=== PATIENT | female | born 1965 | race American Indian/Alaskan Native ===

== ENCOUNTER 2016-11-19 10:34 | Day surgery (SDC) | payer MEDICAID ==
[~2016-11-19 10:34] MED LIST: MARCAINE 0.25% INFILTRATI ONE
[2016-11-19] MEDS ORDERED: ZOFRAN IV PRN (11:05)
--- NOTE | 2016-11-19 11:06 | Anesthesia Day of Surgery ---
Anesthesia Day of Surgery - Day of Surgery Patient Examined: Yes Patient H&P Reviewed: Yes Patient is NPO: Yes
--- NOTE | 2016-11-19 11:07 | Anesthesia Consultation ---
Anesthesia Consult and Med Hx Date of service: 11/19/16 - Airway Anesthetic Teeth Evaluation: Good, Partials (upper) ROM Head & Neck: Adequate Mental/Hyoid Distance: Adequate Mallampati Class: Class II Intubation Access Assessment: Probably Good - Pulmonary Exam CTA: Yes - Cardiac Exam Cardiac Exam: RRR - Pre-Operative Health Status ASA Pre-Surgery Classification: ASA3 Proposed Anesthetic Plan: General - Pulmonary Hx Smoking: No Hx Asthma: Yes (h/o bronchitis) Hx Sleep Apnea: No - Cardiovascular System Hx Hypertension: Yes Hx Cardia Arrhythmia: Yes ("palpitations") Hx Valvular Heart Disease: Yes (MVP) - Central Nervous System Hx Seizures: No CVA: No - Endocrine Hx Renal Disease: No Hx Liver Disease: No Hx Thyroid Disease: No - Other Systems Hx Cancer: No Hx Obesity: Yes
[2016-11-19] MEDS ORDERED: PEPCID PO NR (12:00)
[2016-11-19] MEDS ORDERED: NACL 0.9% 1000 ML 1,000 ML IV SCH (12:00)
[2016-11-19] MEDS ORDERED: VERSED IV NR (12:00)
[2016-11-19 12:03] LABS: Hematocrit 37.9 % (30.3-42.9); Hemoglobin 12.2 gm/dl (10.1-14.3); Mean Corpuscular HGB Conc 32 % (30-34); Mean Corpuscular Hemoglobin 27 pg (28-32); Mean Corpuscular Volume 82 fl (79-97); Platelet Count 358 K/mm3 (140-440); Red Cell Distribution Width 15.1 % (13.2-15.2); White Blood Count 6.4 K/mm3 (4.5-11.0)
[2016-11-19] MEDS ORDERED: DIPRIVAN 10 MG/ML IV ONE ×2 (12:09→12:45)
[2016-11-19] MEDS ORDERED: SUBLIMAZE ONE (12:09)
[2016-11-19] MEDS ORDERED: XYLOCAINE MPF 2% ONE (12:11)
[2016-11-19] MEDS ORDERED: ZEMURON IV ONE (12:11)
[2016-11-19] MEDS ORDERED: SILVER NITRATE TP ONE ×3 (12:12→15:03)
[2016-11-19 12:19] LABS: Anion Gap 18 mmol/L; Blood Urea Nitrogen 14 mg/dL (7-17); Carbon Dioxide 24 mmol/L (22-30); Chloride 99.7 mmol/L (98-107); Glucose 89 mg/dL (65-100); Potassium 4.4 mmol/L (3.6-5.0); Sodium 137 mmol/L (137-145)
--- NOTE | 2016-11-19 12:22 | Short Stay Summary ---
Short Stay Documentation Date of service: 11/19/16 Narrative H&P: C/O: Persistent ovarian cysts 51-year-old with above complaints and issues. She also has heavy vaginal bleeding 6 months. Transvaginal ultrasound obtained May 2016 showed a 10 cm uterus with left ovary 6 cm. Right ovary was 4 cm. Has fibroids 3 largest is 4 cm Repeat ultrasound in August 2016 shows persistent left ovarian cyst as noted above CA ~ 125 was 13 Gynghx: Regular, heavy and prolonged, normal Paps Medhx: Hypertension, MVP Sughx:C-S#2, uterine surgery years ago suspect ablation, cholecystectomy On exam, she is obese no other abnormalities. A: Persistent Left ovarian cyst P: -Patient and I discussed above. She wants this removed plan is to proceed with laparoscopic cystectomy and bilateral salpingectomy. Discussed possible need for left oophorectomy and LAPAROTOMY. SHE IS AWARE OF RISKS OF SURGERY INCLUDING INJURY TO SURROUNDING ORGANS AND STRUCTURES -Patient has signed consent - History Past Medical History: hypertension Past Surgical History: cholecystectomy, Other (possible ablation) Social history: single, full code, no smoking, no alcohol abuse, no prescription drug abuse, no IV drug use - Allergies and Medications Current Medications: Allergies No Known Drug Allergies Allergy (Verified 11/19/16 10:24) Unknown Home Medications Medication Instructions Recorded Confirmed Last Taken Type Sutsh-Itdzn-Jebu 10-160-12.5MG 1 tab PO QDAY 11/12/16 11/19/16 11/18/16 History Sertraline [Zoloft] 50 mg PO QDAY 11/12/16 11/19/16 11/16/16 History Active Medications Famotidine (Pepcid) 20 mg PO PREOP NR Stop: 11/19/16 23:00 Last Admin: 11/19/16 12:01 Dose: 20 mg Hydromorphone HCl (Dilaudid) 0.5 mg IV Q10MIN PRN PRN Reason: Pain , Severe (7-10) Stop: 11/19/16 18:00 Sodium Chloride (Nacl 0.9% 1000 Ml) 1,000 mls @ 75 mls/hr IV DIRECT LINDA Last Admin: 11/19/16 11:45 Dose: 75 mls/hr Midazolam HCl (Versed) 2 mg IV PREOP NR Stop: 11/19/16 23:59 Last Admin: 11/19/16 12:01 Dose: 2 mg - Physical exam General appearance: no acute distress, well-nourished, obese HEENT: Atraumatic Lungs: Clear to auscultation, Normal air movement Breasts: deferred Heart: Regular rate, Normal S1, Normal S2 Gastrointestinal: normal, normoactive bowel sounds, no tenderness, no masses, no guarding Female Genitourinary: normal Extremities: no ischemia - Brief post op/procedure progress note Date of procedure: 11/19/16 Pre-op diagnosis: persistent left ovarian cyst, abnormal uterine bleeding, obesity Post-op diagnosis: same Procedure: Laparoscopic left oophorectomy, bilateral salpingectomy, dilation and curettage Anesthesia: GETA Findings: Obviously large and abnormal left ovarian cyst, bleeding noted after dilation of the cervical os Surgeon: BONG CORTEZ Estimated blood loss: minimal Pathology: list (left ovary, bilateral tubes, endometrial curettings) Specimen disposition: to lab Condition: stable - Hospital course Hospital course: Uncomplicated postoperative course, she is discharged from PACU per protocol - Disposition Condition at discharge: Good - Discharge Diagnoses (1) Ovarian cyst Status: Acute Qualifiers: Laterality: L (2) Left ovarian enlargement Status: Acute (3) Abnormal uterine bleeding (AUB) Status: Acute (4) Morbid obesity Status: Acute Short Stay Discharge Plan Activity: advance as tolerated, no driving until cleared by PCP (no driving on narcotics) Weight Bearing Status: Non-Weight Bearing Diet: regular Wound: open to air Follow up with: PRIMARY CAREMD [Primary Care Provider] - 7 Days
[2016-11-19] MEDS ORDERED: NACL 0.9% IR ONE (12:27)
[2016-11-19] MEDS ORDERED: MARCAINE 0.25% INFILTRATI ONE (12:27)
[2016-11-19] MEDS ORDERED: ePHEDrine SULFATE ONE (13:23)
[2016-11-19] MEDS ORDERED: NACL 0.9% 1000 ML 1,000 ML ONE (13:35)
[2016-11-19] MEDS ORDERED: NEOSTIGMINE ONE (14:02)
[2016-11-19] MEDS ORDERED: ROBINUL ONE (14:03)
[2016-11-19] MEDS ORDERED: TISSEEL VHSD FROZEN 4 ML SYR TP ONE (14:10)
[2016-11-19] MEDS ORDERED: ZOFRAN ONE (14:40)
--- NOTE | 2016-11-19 15:14 | Operative Report ---
Operative Report Operative Report: DATE: 11/19/2016 PREOPERATIVE DIAGNOSIS: Persistent left ovarian cyst, morbid obesity POSTOP DIAGNOSIS: As above plus abnormal uterine bleeding, adhesions NAME OF PROCEDURE: Laparoscopic left oophorectomy, bilateral salpingectomy, dilation and curettage, adhesive lysis SURGEON: BONG CORTEZ MD NEONATAL NURSE PRACTITIONER: None ANESTHESIA: General EBL: Minimal PATHOLOGY SPECIMEN: Left ovary and cyst, bilateral fallopian Tubes, endometrial curettings URINE OUTPUT: 30 mL FINDINGS: Adhesions of omentum to anterior abdominal wall, adhesion of uterus to ovary left ovary, obviously enlarged abnormal appearing left ovary, morbid obesity, stenotic cervical OS with abnormal uterine bleeding noted after dilation of the OS, Very thin fascia at umbilicus DESCRIPTION OF PROCEDURE: After informed consent, patient was taken to the operating room where she was prepped and draped in a sterile fashion. She was placed in dorsolithotomy position then a morales catheter was placed without difficulty . Hernandez speculum speculum was placed in the patient's vagina and single-tooth was used to grab the anterior lip. Cervical os was immediately noted to be stenotic. Using dilators, the cervical OS was serially dilated with sudden onset of mild bleeding noted. Decision made to perform an endometrial biopsy after laparoscopic procedure. A Xunlei uterine manipulator was then advanced into the patient's cervical OS without difficulty. Attention was then turned to the patient's abdomen where 1/4 percent Marcaine was injected then a 1-1/2 cm incision was made in the umbilical fold; using S retractors, the subcutaneous tissue was dissected down to exposed the fascia. Fascia was grasped with Rakesh forceps, elevated and an incision was made in the midline using Metzenbaum scissors. Fascial incision was extended with use of Maryellen forceps and then S retractors were placed in the incisional hole. Peritoneal layer was seen and grasped with Allises 2; this was elevated and incision was made in the midline using Metzenbaum scissors. S retractors were placed in the incisional hole in the peritoneum and then a Berkowitz trocar was advanced into the patient's abdomen without difficulty. CO2 gas was used to obtain intra-abdominal insufflation. Significant adhesions were noted immediately. Attention was then turned to the patient's left Lower quadrant and suprapubic region were under direct visualization 10 mm trocars were advanced into the patient's abdomen without difficulty. Adhesive lysis was performed then using 10 mm LigaSure, the left fallopian tube and ovary was grasped and cauterized and transected and placed in the cul-de-sac. Then turned our attention to the right fallopian tube which was grasped cauterized and transected as well and removed from the surgical field. Using Endoloop catch bag, all specimens were removed from the patient's abdomen. Tisseel hemostatic agent was then placed over the transection site as a means to prevent future bleeding. All instruments were then withdrawn from the patient's abdomen under direct visualization. Using the Aaron Freed method , all 10 mm fascial openings were closed using 0 Vicryl with a single figure-of- eight stitch and then the skin was closed in a subcuticular manner with 4-0 Monocryl. Attension was then turned to the patient's pelvis where a D&C was performed without difficulty after removal of the Hulka uterine manipulator. Instrument counts were correct 2; she tolerated the procedure well and was transferred to the PACU in stable condition thank you
[2016-11-19] MEDS ORDERED: MOTRIN PO PRN (15:22)
[2016-11-19] MEDS ORDERED: TYLENOL PO PRN (15:22)
[2016-11-19] MEDS ORDERED: NORCO 5/325 PO PRN (15:22)
[2016-11-19] MEDS: DILAUDID IV PRN ×3 (15:30→16:04)
[2016-11-19] MEDS ORDERED: TORADOL IV ONE (15:41)
[2016-11-19] MEDS ORDERED: TORADOL ONE (15:43)
--- NOTE | 2016-11-19 15:43 | Post Anesthesia Evaluation ---
- Post Anesthesia Evaluation Patient Participated: Yes Airway Patent: Yes Stable Respiratory Function: Yes Nausea/Vomiting: No Temp > 96.8F: Yes Pain Manageable: Yes Adequeate Hydration: Yes Anesthesia Complications: No Block Receding Appropriately: Not Applicable Patient on Ventilator: No
[2016-11-19 16:27] VITALS: BP 136/80
== END 2016-11-19 17:20 | disposition home or self-care (01) ==
LOC: OR 10:34
PROVIDERS: ATTEND Obstetrics & Gynecology Gynecology
DX: D27.1 Benign neoplasm of left ovary (principal); D28.2 Benign neoplasm of uterine tubes and ligaments; N73.6 Female pelvic peritoneal adhesions (postinfective); N88.2 Stricture and stenosis of cervix uteri; E66.01 Morbid (severe) obesity due to excess calories; I10 Essential (primary) hypertension; Z86.79 Personal history of other diseases of the circulatory system; Z98.890 Other specified postprocedural states; Z90.49 Acquired absence of other specified parts of digestive tract; J45.909 Unspecified asthma, uncomplicated
CPT/HCPCS: 36415; 58120; 58661; 80048; 81025; 85027; 88305; C9250; J1170; J1885; J2250; J2405; J2704; J2710; J3010; J7030; 88302